=== PATIENT | male | born 1955 | race Caucasian/White ===

== ENCOUNTER 2017-11-22 15:13 | Emergency (ER) | payer OTHER ==
[2017-11-22] MEDS ORDERED: DIPHTH,PERTUSS(ACELL),TET 0.5 ML DISP.SYRIN IM ONE (15:21)
[2017-11-22 15:22] VITALS: BP 154/64; PULSE 75; TEMP 98; BMI 26.2
--- NOTE | 2017-11-22 15:22 | PDOC ---
Rapid Medical Evaluation Time Seen by Provider: 11/22/17 15:19 Medical Evaluation: Allergies Allergy/AdvReac Type Severity Reaction Status Date / Time No Known Allergies Allergy Verified 08/08/12 09:29 I have performed a brief in-person evaluation of this patient. The patient presents with a chief complaint of: works in the kitchen here. Cut his finger on a metal tray. needs tetanus shot Pertinent physical exam findings: abrasion to left middle finger I have ordered the following: boostrix The patient will proceed to the ED for further evaluation. Discharge Disposition - Diagnosis Abrasion - Referrals - Patient Instructions - Post Discharge Activity
--- NOTE | 2017-11-22 15:33 | PDOC ---
History of Present Illness - General Chief Complaint: Injury Stated Complaint: EMPLOYEE, INJURY Time Seen by Provider: 11/22/17 15:19 - History of Present Illness Initial Comments: 11/22/17 15:30 62-year-old male presents for evaluation of left finger laceration. He states he is not current on tetanus lacerated his left middle finger today while working in the kitchen on a piece of metal. He has BPH and he takes medicine for that but he does not recall the name of the medicine. Past History - Past Medical History Allergies/Adverse Reactions: Allergies Allergy/AdvReac Type Severity Reaction Status Date / Time No Known Allergies Allergy Verified 11/22/17 15:22 Home Medications: Ambulatory Orders NK [No Known Home Medication] 11/22/17 COPD: No GI Disorders: Yes (REFLUX) - Surgical History Cardiac Surgery: Yes (negative cath 07/2011) - Suicide/Smoking/Psychosocial Hx Smoking Status: No Smoking History: Never smoked Number of Cigarettes Smoked Daily: 0 Drug/Substance Use Hx: No Substance Use Type: None Review of Systems - Review of Systems All Other Systems: Reviewed and Negative *Physical Exam - Vital Signs Last Vital Signs Temp Pulse Resp BP Pulse Ox 98 F 75 18 154/64 98 11/22/17 15:18 11/22/17 15:18 11/22/17 15:18 11/22/17 15:18 11/22/17 15:18 - Physical Exam Comments: There is a subcentimeter superficial abrasion on the radial aspect of the left middle finger at the tip overlying the PIPJ. There are no gross sensorimotor deficits this wound does not require sutures 11/22/17 15:31 Medical Decision Making - Medical Decision Making Tetanus updated 11/22/17 15:32 *DC/Admit/Observation/Transfer Diagnosis at time of Disposition: Abrasion - Discharge Dispostion Disposition: HOME Condition at time of disposition: Stable Decision to Admit order: No - Referrals - Patient Instructions Additional Instructions: Return to the emergency room should there be any pain drainage or swelling to the area. Otherwise keep the area clean with soap and water. Follow-up with the primary care physician once 2 days further evaluation and treatment options. - Post Discharge Activity
== END 2017-11-22 15:39 | disposition home or self-care (01) ==
LOC: JERFT 15:13
PROC: 3E0234Z Introduction of Serum, Toxoid and Vaccine into Muscle, Percutaneous Approach (ICD-10-PCS; principal; 2017-11-22)
DX: S60.413A Abrasion of left middle finger, initial encounter (principal); W22.8XXA Striking against or struck by other objects, initial encounter; Y93.89 Activity, other specified; Y92.233 Cafeteria of hospital as the place of occurrence of the external cause; Y99.0 Civilian activity done for income or pay
CPT/HCPCS: 90715; 99281-25

== ENCOUNTER 2022-12-03 04:28 | Day surgery (SDC) | payer OTHER ==
[2022-11-30 08:52] VITALS: BMI 26.8
[2022-12-03 09:59] VITALS: BP 122/79; PULSE 60; RESP 18; TEMP 98
== END 2022-12-03 10:10 | disposition home or self-care (01) ==
LOC: JASU-ENDO 04:28
PROVIDERS: ATTEND Internal Medicine Gastroenterology
PROC: 0DB68ZX Excision of Stomach, Via Natural or Artificial Opening Endoscopic, Diagnostic (ICD-10-PCS; 2022-12-03)
PROC: 0DB78ZX Excision of Stomach, Pylorus, Via Natural or Artificial Opening Endoscopic, Diagnostic (ICD-10-PCS; 2022-12-03)
PROC: 0DBL8ZX Excision of Transverse Colon, Via Natural or Artificial Opening Endoscopic, Diagnostic (ICD-10-PCS; principal; 2022-12-03 08:30)
DX: Z12.11 Encounter for screening for malignant neoplasm of colon (principal); K63.5 Polyp of colon; K29.50 Unspecified chronic gastritis without bleeding; K57.30 Diverticulosis of large intestine without perforation or abscess without bleeding
CPT/HCPCS: 88305-TC